=== PATIENT | female | born 1955 | race Caucasian/White ===

== ENCOUNTER → 2016-12-19 | Outpatient (CLI) | payer OTHER | LOC: RAD 01:35 | DX: Z12.31 Encounter for screening mammogram for malignant neoplasm of breast (principal) ==

== ENCOUNTER → 2018-02-11 | Outpatient (CLI) | payer OTHER | LOC: RAD 01:22 | DX: Z12.31 Encounter for screening mammogram for malignant neoplasm of breast (principal) ==

== ENCOUNTER → 2019-02-17 | Outpatient (CLI) | payer OTHER | LOC: RAD 01:48 | DX: Z12.31 Encounter for screening mammogram for malignant neoplasm of breast (principal) ==

== ENCOUNTER → 2020-02-23 | Outpatient (CLI) | payer OTHER, MEDICARE | LOC: BC 15:19 | PROVIDERS: ATTEND Family Medicine | DX: Z12.31 Encounter for screening mammogram for malignant neoplasm of breast (principal) ==

== ENCOUNTER 2021-02-11 09:22 | Emergency (ER) | payer OTHER, MEDICARE ==
[~2021-02-11] VITALS: Ht 157.5 cm; Wt 72.6 kg
[2021-02-11 10:03] LABS: URINE BILIRUBIN NEGATIVE (Negative); URINE BLOOD NEGATIVE (Negative); URINE CLARITY CLEAR; URINE COLOR YELLOW; URINE GLUCOSE-RANDOM* NEGATIVE (Negative); URINE KETONES NEGATIVE (Negative); URINE NITRITE-REFLEX NEGATIVE (Negative); URINE PROTEIN (DIPSTICK) NEGATIVE (Negative); URINE UROBILINOGEN 0.2 E.U./dl (0.2-1.0)
[2021-02-11 10:11] LABS: ABSOLUTE NEUTROPHILS 2.8 thou/uL (1.4-8.2); BASOPHILS 1.3 % (0.0-2.0); EOSINOPHILS 1.7 % (0.0-3.0); HEMATOCRIT 42.9 % (37.0-47.0); HEMOGLOBIN 14.2 gm/dL (12.0-15.0); LYMPHOCYTES 49.6 % (24.0-44.0); MCH 28.9 pg (26.0-34.0); MCV 87.7 fL (80.0-100.0); MONOCYTES 10.9 % (1.0-8.0); PLATELET COUNT 209 thou/uL (150-400); POLYS 36.5 % (36.0-66.0); RBC 4.89 mil/uL (4.20-5.00); WBC 7.6 thou/uL (4.0-11.0)
[2021-02-11 10:16] LABS: URINE LEUKOCYTES-REFLEX 1+ (Negative)
[2021-02-11 10:20] LABS: ANION GAP 15 mmol/L (7-16); BUN 14 mg/dL (7-18); CALCIUM 9.1 mg/dL (8.5-10.1); CHLORIDE 102 mmol/L (98-107); CO2 22 mmol/L (21-32); GLUCOSE 111 mg/dL (74-106); POTASSIUM 3.6 mmol/L (3.5-5.1); SODIUM 139 mmol/L (136-145)
[2021-02-11 10:24] LABS: CASTS None Seen /LPF (None Seen); SQUAMOUS 4-10 Moderate /LPF (0-3)
[2021-02-11 10:25] LABS: BACTERIA-REFLEX 1-9 Few /HPF (None Seen); CRYSTALS None Seen /LPF (None Seen); URINE RBC 1-2 Rare /HPF (NONE SEEN); URINE WBC-REFLEX 0-5 Rare /HPF (0-5)
[2021-02-11 10:31] LABS: ALBUMIN 4.2 g/dL (3.4-5.0); AMYLASE 55 U/L (25-115); DIRECT BILIRUBIN < 0.1 mg/dL (<0.1-0.2); LIPASE 64 U/L (73-393); MAGNESIUM 2.1 mg/dL (1.8-2.4); PHOSPHORUS 2.8 mg/dL (2.5-4.9); SGOT 25 U/L (15-37); SGPT 23 U/L (30-65); TOTAL BILIRUBIN 0.5 mg/dL (0.2-1.0); TROPONIN-I <0.06 ng/mL (<0.06)
[2021-02-11] MEDS ORDERED: ATIVAN0.5 M1 PO (11:27)
[2021-02-11 11:48] VITALS: BP 140/60
--- NOTE | 2021-02-12 12:28 | EKG ---
[address] [address] ELECTROCARDIOGRAM REPORT Name: ROSS GUADALUPE Room #: [facility]ina[facility]aterina[facility] [id number] Admission: 02/11/21 Attend Phys: Discharge: 02/11/21 Date of : 51 Report #: [id number] [facility] ED Test Date: 2021-02-11 Test Time: 09:40:01 Pat Name: ROSS GUADALUPE Department: Room: Gender: F [employer] Project [employer]: [facility] [employer] [facility] : 1955 Requested By: Getachew Marquez Order Number: [id number] MD: Adithya Sellers Measurements Intervals [place] Rate: 71 P: 49 AR: 133 QRS: 13 QRSD: 85 T: 28 QT: 440 QTc: 479 Interpretive Statements Sinus rhythm No significant abnormality No previous ECG available for comparison Electronically Signed On 02-12-2021 12:28:08 CDT by Adithya Sellers [email or web address] <ELECTRONICALLY SIGNED> By: Adithya Sellers MD, [facility] 02/12/21 1228 0940 0940 Adithya Sellers MD, FACC /EPI
== END 2021-02-11 11:48 | disposition home or self-care (01) ==
LOC: ER 09:22
PROVIDERS: Emergency Medicine
DX: F41.9 Anxiety disorder, unspecified (principal); I10 Essential (primary) hypertension

== ENCOUNTER → 2021-02-18 | Outpatient (CLI) | payer OTHER, MEDICARE ==
[~2021-02-18] MED LIST: ATIVAN0.5 M1 PO
== END ==
LOC: SJCVCIMAG 10:44
PROVIDERS: ATTEND Family Medicine
DX: R06.00 Dyspnea, unspecified (principal); R53.83 Other fatigue; R42 Dizziness and giddiness; R03.0 Elevated blood-pressure reading, without diagnosis of hypertension; E78.00 Pure hypercholesterolemia, unspecified; Z79.899 Other long term (current) drug therapy

== ENCOUNTER → 2021-05-30 | Outpatient (CLI) | payer OTHER, MEDICARE | LOC: BC 10:28 | PROVIDERS: ATTEND Family Medicine | DX: Z12.31 Encounter for screening mammogram for malignant neoplasm of breast (principal); N64.89 Other specified disorders of breast ==